=== PATIENT | female | born 1940 | race Caucasian/White ===

== ENCOUNTER 2023-08-30 11:41 | Day surgery (SDC) | payer MEDICARE, BC ==
[2023-08-30] MEDS: Lactated Ringers 1,000 ML IV SCH (12:12)
[2023-08-30] MEDS ORDERED: Propofol 200 MG/20 ML SDV ONE (12:25)
[2023-08-30] MEDS ORDERED: fentaNYL 100 MCG/2 ML SDV ONE (12:25)
[2023-08-30] MEDS ORDERED: Midazolam 1 MG/ML 2 ML SDV ONE (12:25)
[2023-08-30] MEDS ORDERED: Lidocaine 4% 5 ML Amp ONE (12:25)
== END 2023-08-30 14:58 | disposition home or self-care (01) ==
LOC: VM.SDS 11:41
PROVIDERS: ATTEND Family Medicine
DX: K29.50 Unspecified chronic gastritis without bleeding (principal); K43.2 Incisional hernia without obstruction or gangrene; K57.30 Diverticulosis of large intestine without perforation or abscess without bleeding; I12.9 Hypertensive chronic kidney disease with stage 1 through stage 4 chronic kidney disease, or unspecified chronic kidney disease; E11.22 Type 2 diabetes mellitus with diabetic chronic kidney disease; N18.32 Chronic kidney disease, stage 3b; E78.00 Pure hypercholesterolemia, unspecified; Z79.899 Other long term (current) drug therapy; Z88.1 Allergy status to other antibiotic agents; Z88.8 Allergy status to other drugs, medicaments and biological substances
CPT/HCPCS: 00731; 99100; J1642; J2250; J2704; J3010; J3490; J7120